=== PATIENT | male | born 1960 | race Caucasian/White ===

== ENCOUNTER 2017-02-27 13:44 | Emergency (ER) | payer BC ==
[~2017-02-27] VITALS: Ht 180.3 cm; Wt 108.9 kg
--- NOTE | 2017-02-27 14:24 | PHYS DOC ---
Adult General Chief Complaint Chief Complaint: NEAR SYNCOPE HPI HPI Patient is a 56 year old [male presents emergency Department today with complaint of feeling lightheaded and dizzy. He states symptoms began this morning when he first got up out of bed. Patient denies passing out. He states that his symptoms x-ray worsens when he lays back down. He describes a spinning sensation. He states it has a history of tinnitus and denies any worsening of that. He denies any other hearing deficits. He denies any visual deficits. He denies any focal weakness or changes in sensation between the left and right side. Patient denies any preceding illnesses within the past week. He states that he is doing a CPAP trial at home this weekend. Patient denies chest pain, palpitations, exertional dyspnea, orthopnea or PND.] Patient reports he is ambidextrous Review of Systems Review of Systems Constitutional: Denies fever or chills [] Eyes: Denies change in visual acuity, redness, or eye pain [] HENT: Denies nasal congestion or sore throat [] Respiratory: Denies cough or shortness of breath [] Cardiovascular: No additional information not addressed in HPI [] GI: Denies abdominal pain, nausea, vomiting, bloody stools or diarrhea [] : Denies dysuria or hematuria [] Musculoskeletal: Denies back pain or joint pain [] Integument: Denies rash or skin lesions [] Neurologic: Denies headache, focal weakness or sensory changes [] Endocrine: Denies polyuria or polydipsia [] Current Medications Current Medications Current Medications Medications (Trade) Dose Ordered Sig/Nic Start Time Stop Time Status Last Admin Dose Admin Meclizine HCl (Antivert) 25 mg 1X ONCE 02/27/17 14:30 02/27/17 15:01 DC 02/27/17 15:06 25 MG Ondansetron HCl (Zofran) 4 mg 1X ONCE 02/27/17 14:30 02/27/17 15:01 DC 02/27/17 15:13 4 MG Sodium Chloride (Iv Sodium Chloride 0.9% 1000ml Bag) 1,000 ml @ 1,000 mls/hr 1X ONCE 02/27/17 14:30 02/27/17 15:29 DC 02/27/17 15:13 1,000 MLS/HR Sodium Chloride 10 ml 10 ml QSHIFT PRN 02/27/17 14:30 02/27/17 15:14 10 ML Allergies Allergies Allergies Coded Allergies Type Severity Reaction Last Updated Verified No Known Drug Allergies 02/27/17 No Physical Exam Physical Exam Constitutional: Well developed, well nourished, no acute distress, non-toxic appearance. Patient ambulated with a steady, unaided gait. HENT: Normocephalic, atraumatic, bilateral external ears normal, oropharynx moist, no oral exudates, nose normal. Eyes: PERRLA, EOMI, conjunctiva normal, no discharge. There is no nystagmus. There is no nystagmus reproduced with Hallpike type maneuver. Neck: Normal range of motion, no tenderness, supple, no stridor. There is no meningismus. Cardiovascular:Heart rate regular rhythm, no murmur. There is no JVD. There is no dependent lower extremity edema. PMI is not displaced. Lungs & Thorax: Bilateral breath sounds clear to auscultation [] Abdomen: Bowel sounds normal, soft, no tenderness, no masses, no pulsatile masses. [] Skin: Warm, dry, no erythema, no rash. [] Back: No tenderness, no CVA tenderness. [] Extremities: No tenderness, no cyanosis, no clubbing, ROM intact, no edema. [] Neurologic: Patient is alert and oriented 3. Cranial nerves II through XII are intact. Patient is able to perform rapid alternating movements and [id number] without difficulty. Romberg is negative for pronator drift. Patient ambulates with a steady, unaided gait. Psychologic: Affect normal, judgement normal, mood normal. [] Current Patient Data Vital Signs Vital Signs Date Time Temp Pulse Resp B/P Pulse Ox O2 Delivery O2 Flow Rate FiO2 02/27/17 14:08 97.8 75 18 149/79 100 Room Air 97.8 Lab Values Laboratory Tests Test 02/27/17 15:20 White Blood Count 6.2x10^3/uL (4.0-11.0) Red Blood Count 5.06x10^6/uL (4.30-5.70) Hemoglobin 15.1g/dL (13.0-17.5) Hematocrit 44.4% (39.0-53.0) Mean Corpuscular Volume 88fL (79-100) Mean Corpuscular Hemoglobin 30pg (25-35) Mean Corpuscular Hemoglobin Concent 34g/dL (31-37) Red Cell Distribution Width 13.4% (11.5-14.5) Platelet Count 151x10^3/uL (140-400) Neutrophils (%) (Auto) 61% (31-73) Lymphocytes (%) (Auto) 28% (24-48) Monocytes (%) (Auto) 8% (0-9) Eosinophils (%) (Auto) 3% (0-3) Basophils (%) (Auto) 1% (0-3) Neutrophils # (Auto) 3.8x10^3uL (1.8-7.7) Lymphocytes # (Auto) 1.7x10^3/uL (1.0-4.8) Monocytes # (Auto) 0.5x10^3/uL (0.0-1.1) Eosinophils # (Auto) 0.2x10^3/uL (0.0-0.7) Basophils # (Auto) 0.0x10^3/uL (0.0-0.2) Sodium Level 138mmol/L (136-145) Potassium Level 4.0mmol/L (3.5-5.1) Chloride Level 100mmol/L (98-107) Carbon Dioxide Level 25mmol/L (21-32) Anion Gap 13 (6-14) Blood Urea Nitrogen 15mg/dL (8-26) Creatinine 0.9mg/dL (0.7-1.3) Estimated GFR (Cockcroft-Gault) 87.0 BUN/Creatinine Ratio 17 (6-20) Glucose Level 105mg/dL (70-99) H Calcium Level 8.6mg/dL (8.5-10.1) Magnesium Level 1.9mg/dL (1.8-2.4) Total Bilirubin 0.4mg/dL (0.2-1.0) Aspartate Amino Transferase (AST) 10U/L (15-37) L Alanine Aminotransferase (ALT) 32U/L (16-63) Alkaline Phosphatase 124U/L (46-116) H Total Protein 7.1g/dL (6.4-8.2) Albumin 3.5g/dL (3.4-5.0) Albumin/Globulin Ratio 1.0 (1.0-1.7) Laboratory Tests 02/27/17 15:20 Laboratory Tests 02/27/17 15:20 EKG EKG Twelve-lead EKG was performed at 1425 shows a normal sinus rhythm with a heart rate of 70 bpm. NM interval is 150 ms with a QRS episcopalian of 102 ms with a QT duration of 432 ms. Radiology/Procedures Radiology/Procedures [facility] [id number] [place] [address] IMAGING REPORT Signed PATIENT: BRIDGET NGUYEN ACCOUNT: [id number] : 1960 LOCATION: ER AGE: 56 SEX: M EXAM STATUS: REG ER ORD. PHYSICIAN: IMELDA GOLD REASON: lightheaded/dizzy PROCEDURE: PORTABLE CHEST 1V PORTABLE CHEST 1V Clinical Indication: lightheaded/dizzy Comparison: None. Technique: Portable upright AP view of the chest is obtained. Findings: No focal consolidation, pleural effusion or pneumothorax is seen. Cardiomediastinal silhouette is within normal limits of size. Visualized osseous structures and overlying soft tissues demonstrate no acute finding. IMPRESSION: No radiographic evidence of an acute cardiopulmonary process. DICTATED and SIGNED BY: MATTHIAS DAVIS MD DATE: 02/27/17 145 CC: JUAN VILLALTA; IMELDA GOLD ~ [facility] [address] [place] [address] IMAGING REPORT Signed PATIENT: BRIDGET NGUYEN ACCOUNT: [id number] : 1960 LOCATION: ER AGE: 56 SEX: M EXAM STATUS: REG ER ORD. PHYSICIAN: IMELDA GOLD REASON: lightheaded/dizzy PROCEDURE: CT HEAD WO CONTRAST CT HEAD WITHOUT CONTRAST History: lightheaded/dizzy Comparison: None. Procedure: Axial images are obtained of the head from the skull base through the vertex without IV contrast. One or more of the following individualized dose reduction techniques were utilized for this examination: 1. Automated exposure control 2. Adjustment of the mA and/or kV according to patient size 3. Use of iterative reconstruction technique Findings: Rosales-white matter differentiation is preserved. The ventricles and sulci are normal for the patient's age.. No mass-effect, midline shift, hemorrhage or obvious acute infarction is identified. Basilar cisterns are patent. Bone windows demonstrate no significant calvarial abnormality.The visualized paranasal sinuses appear clear. Mastoid air cells are well aerated. IMPRESSION: No acute intracranial abnormality. DICTATED and SIGNED BY: MATTHIAS DAVIS MD DATE: 02/27/17 1602 CC: JUAN VILLALTA; IMELDA GOLD ~ Course & Med Decision Making Course & Med Decision Making Patient is had an uneventful stay in the emergency department. The CT scan of his head is normal. He has no concerning laboratory test indicative of electrolyte abnormalities or anemia. His symptoms have not been persistent concerning for a cerebellar stroke. Reevaluation by me finds the patient asymptomatic and with a normal neurologic exam. Dragon Disclaimer Dragon Disclaimer This electronic medical record was generated, in whole or in part, using a voice recognition dictation system. Departure Departure Impression: Primary Impression: Vertigo Disposition: 01 HOME, SELF-CARE Condition: GOOD Patient Instructions: Vertigo, [id number] Additional Instructions: 1. Review the discharge instructions provided for self-care and reasons to return to the emergency department. 2. Take the medications as prescribed. 3. Contact your primary care doctor in the morning to schedule follow-up appointment for reevaluation later this week. Scripts Ondansetron (Zofran Odt)4 Mg Tab.rapdis1 Tab SL Q8HRS nausea and vomiting #10 TAB Prov:IMELDA GOLD 02/27/17 Prednisone 20 Mg Tablet2 Tab PO DAILY 5 Days Prov:IMELDA GOLD 02/27/17 Meclizine Hcl 25 Mg Tablet1 Tab PO TID dizziness/vertigo #21 TAB Prov:IMELDA GOLD 02/27/17 IMELDA GOLD Feb 27, 2017 14:24
[2017-02-27] MEDS ORDERED: IV NORMAL SALINE 1000ML BAG 1,000 ML IV ONE (14:30)
[2017-02-27] MEDS ORDERED: ONDANSETRON PF 4 MG/2 ML VIAL. IV ONE (14:30)
[2017-02-27] MEDS ORDERED: MECLIZINE HCL 12.5 MG TABLET. PO ONE (14:30)
[2017-02-27] MEDS ORDERED: 0.9 % SODIUM CHLORIDE 10 ML DISP.SYRIN. IV PRN (14:30)
--- NOTE | 2017-02-27 14:53 | RAD ---
PORTABLE CHEST 1V Clinical Indication: lightheaded/dizzy Comparison: None. Technique: Portable upright AP view of the chest is obtained. Findings: No focal consolidation, pleural effusion or pneumothorax is seen. Cardiomediastinal silhouette is within normal limits of size. Visualized osseous structures and overlying soft tissues demonstrate no acute finding. IMPRESSION: No radiographic evidence of an acute cardiopulmonary process.
[2017-02-27 15:26] LABS: BASO % 1 % (0-3); EOS % 3 % (0-3); HEMATOCRIT 44.4 % (39.0-53.0); HEMOGLOBIN 15.1 g/dL (13.0-17.5); LYMPH # 1.7 x10^3/uL (1.0-4.8); LYMPH % 28 % (24-48); MEAN CORPUSCULAR HEMOGLOBIN 30 pg (25-35); MEAN CORPUSCULAR HGB CONC 34 g/dL (31-37); MEAN CORPUSCULAR VOLUME 88 fL (79-100); MONO % 8 % (0-9); NEUT % 61 % (31-73); PLATELET COUNT 151 x10^3/uL (140-400); RED BLOOD COUNT 5.06 x10^6/uL (4.30-5.70); RED CELL DISTRIBUTION WIDTH 13.4 % (11.5-14.5); WHITE BLOOD COUNT 6.2 x10^3/uL (4.0-11.0)
[2017-02-27 15:36] LABS: CALCIUM 8.6 mg/dL (8.5-10.1); CREATININE 0.9 mg/dL (0.7-1.3)
[2017-02-27 15:42] LABS: ALBUMIN 3.5 g/dL (3.4-5.0); MAGNESIUM 1.9 mg/dL (1.8-2.4); TOTAL BILIRUBIN 0.4 mg/dL (0.2-1.0); TOTAL PROTEIN 7.1 g/dL (6.4-8.2)
--- NOTE | 2017-02-27 16:07 | RAD ---
CT HEAD WITHOUT CONTRAST History: lightheaded/dizzy Comparison: None. Procedure: Axial images are obtained of the head from the skull base through the vertex without IV contrast. One or more of the following individualized dose reduction techniques were utilized for this examination: 1. Automated exposure control 2. Adjustment of the mA and/or kV according to patient size 3. Use of iterative reconstruction technique Findings: Rosales-white matter differentiation is preserved. The ventricles and sulci are normal for the patient's age.. No mass-effect, midline shift, hemorrhage or obvious acute infarction is identified. Basilar cisterns are patent. Bone windows demonstrate no significant calvarial abnormality.The visualized paranasal sinuses appear clear. Mastoid air cells are well aerated. IMPRESSION: No acute intracranial abnormality.
[2017-02-27 16:09] VITALS: BP 122/70
[2017-02-27] MEDS ORDERED: ONDA4TAB10 SL (16:21)
[2017-02-27] MEDS ORDERED: MECL25TA3 PO (16:21)
[2017-02-27] MEDS ORDERED: PRED20TA PO (16:21)
--- NOTE | 2017-02-28 06:12 | EKG ---
[facility] [address] [place] [address] Test Date: 2017-02-27 Test Time: 14:25:47 Pat Name: BRIDGET NGUYEN Department: Room: Gender: M Machinist Bench: : 1960 Requested By: IMELDA GOLD Order Number: [id number] Reading MD: Soraida Clark Measurements Intervals [place] Rate: 78 P: 0 MI: 150 QRS: -15 QRSD: 102 T: 1 QT: 376 QTc: 432 Interpretive Statements SINUS RHYTHM NORMAL EKG RI6.01 No previous ECG available for comparison Electronically Signed On 03-02-2017 10:06:39 CDT by Soraida Clark
== END 2017-02-27 16:32 | disposition home or self-care (01) ==
LOC: ER 13:44
DX: R42 Dizziness and giddiness (principal)
CPT/HCPCS: 36415; 70450; 71010; 80053; 83735; 85027; 93005; 96361; 96374; 99285; J2405; J7030; J8597